=== PATIENT | female | born 1980 | race Caucasian/White ===

== ENCOUNTER 2017-09-25 06:48 | Day surgery (SDC) | payer OTHER ==
[2017-09-25] MEDS: LR 1,000 ML IV (08:14)
[2017-09-25] MEDS ORDERED: dexameTHASONE 4 MG/ML 1ML VIAL (J1100) As Ordered (08:26)
[2017-09-25] MEDS ORDERED: ROCURONIUM BROMIDE 50 MG/5 ML VIAL As Ordered (08:26)
[2017-09-25] MEDS ORDERED: LIDOCAINE 2% INJ 100 MG/5 ML SDV (FOR ANES.) As Ordered (08:26)
[2017-09-25] MEDS ORDERED: ONDANSETRON 4MG/2ML VIAL (J2405) As Ordered ×2 (08:26→11:53)
[2017-09-25] MEDS ORDERED: METOCLOPRAMIDE INJ 10MG/2ML VIAL (J2765) As Ordered (08:26)
[2017-09-25] MEDS ORDERED: PROPOFOL 200 MG/20 ML VIAL As Ordered (08:26)
[2017-09-25] MEDS ORDERED: fentaNYL 100 MCG/2 ML INJECTION (J3010) As Ordered ×2 (08:27→10:39)
[2017-09-25] MEDS ORDERED: MIDAZOLAM INJ 2 MG/2 ML VIAL (J2250) As Ordered (08:28)
[2017-09-25] MEDS ORDERED: CLINDAMYCIN 900 MG/50 ML PREMIX BAG As Ordered (09:32)
[2017-09-25] MEDS: CLINDAMYCIN 900 MG in APPROPRIATE DILUENT 1 EA IV (09:44)
[2017-09-25] MEDS ORDERED: dexameTHASONE 4 MG/ML 1ML VIAL (J1100) IV (09:45)
[2017-09-25] MEDS ORDERED: GLYCOPYRROLATE INJ 0.2 MG/ML 2 ML VIAL As Ordered ×2 (10:04)
[2017-09-25] MEDS ORDERED: NEOSTIGMINE 10 MG/10 ML VIAL (J2710) As Ordered (10:04)
[2017-09-25] MEDS: LIDOCAINE 2% W/ EPINEPHRINE 1.7 ML DENTAL INJ As Ordered ×3 (10:17→11:14)
[2017-09-25] MEDS ORDERED: SUCCINYLCHOLINE 100 MG/5 ML SYRINGE (J0330) As Ordered (10:25)
[2017-09-25] MEDS ORDERED: KETOROLAC 60 MG/2 ML VIAL (J1885) As Ordered (10:29)
[2017-09-25] MEDS ORDERED: PERCOCET 5MG/325MG TAB As Ordered (12:01)
[2017-09-25] MEDS: ONDANSETRON 4MG/2ML VIAL (J2405) IV (12:03)
[2017-09-25] MEDS: PERCOCET 5MG/325MG TAB PO (12:10)
[2017-09-25] MEDS ORDERED: PROMETHAZINE INJ 25 MG/ML VIAL (J2550) As Ordered (12:29)
[2017-09-25] MEDS ORDERED: METOCLOPRAMIDE INJ 10MG/2ML VIAL (J2765) IV (12:30)
[2017-09-25] MEDS ORDERED: LR 1,000 ML IV (12:30)
[2017-09-25] MEDS ORDERED: fentaNYL 100 MCG/2 ML INJECTION (J3010) IV (12:30)
[2017-09-25] MEDS: PROMETHAZINE INJ 25 MG/ML VIAL (J2550) IV (12:35)
[2017-09-25] MEDS ORDERED: SUGAMMADEX SODIUM 500 MG/5 ML VIAL (BRIDION) As Ordered (13:27)
== END 2017-09-25 14:15 | disposition home or self-care (01) ==
LOC: M SDC 06:48
DX: K02.9 Dental caries, unspecified (principal); Z88.0 Allergy status to penicillin; Z88.8 Allergy status to other drugs, medicaments and biological substances; K21.9 Gastro-esophageal reflux disease without esophagitis
CPT/HCPCS: D7210